=== PATIENT | male | born 1960 | race Caucasian/White ===

== ENCOUNTER 2017-10-15 08:21 | Emergency (ER) | payer OTHER ==
[2017-10-15 08:26] VITALS: O2SAT 98; BMI 23.7
--- NOTE | 2017-10-15 08:37 | ED PDOC ---
Upper Extremity Pain/Injury Time Seen by Provider: 10/15/17 08:23 Chief Complaint (Nursing): Upper Extremity Problem/Injury Chief Complaint (Provider): right shoulder pain History Per: Patient History/Exam Limitations: no limitations Onset/Duration Of Symptoms: Days (last ) Current Symptoms Are (Timing): Still Present Additional Complaint(s): Norberto Loera is a 56 year old male, with no significant past medical history, who presents to the emergency department complaining of right shoulder pain onset since last . Patient states he injured his right shoulder while lifting heavy door at work and has had pain since then. He denies any weakness or paresthesias. No further medical complaints. PMD: None provided. Past Medical History Reviewed: Historical Data, Nursing Documentation, Vital Signs Vital Signs: Last Vital Signs Temp 97 F L 10/15/17 08:25 Pulse 97 H 10/15/17 08:25 Resp 24 10/15/17 08:25 BP 157/79 H 10/15/17 08:25 Pulse Ox 98 10/15/17 08:25 - Medical History PMH: No Chronic Diseases - Surgical History Surgical History: No Surg Hx - Family History Family History: States: Unknown Family Hx - Home Medications Home Medications: Ambulatory Orders Medication Instructions Recorded Naproxen [Naprosyn] 500 mg PO Q12H #20 tab 10/15/17 - Allergies Allergies/Adverse Reactions: Allergies Allergy/AdvReac Type Severity Reaction Status Date / Time No Known Allergies Allergy Verified 10/15/17 08:33 Review of Systems ROS Statement: Except As Marked, All Systems Reviewed And Found Negative Musculoskeletal: Positive for: Shoulder Pain (right) Neurological: Negative for: Weakness, Numbness (paresthesias) Physical Exam - Reviewed Nursing Documentation Reviewed: Yes Vital Signs Reviewed: Yes - Physical Exam Appears: Positive for: No Acute Distress Head Exam: Positive for: ATRAUMATIC, NORMAL INSPECTION, NORMOCEPHALIC Skin: Positive for: Normal Color, Warm, Dry Eye Exam: Positive for: Normal appearance Neck: Positive for: Painless ROM Extremity: Positive for: Tenderness (right shoulder anterolaterally ). Negative for: Normal ROM (anteriorly limited by pain), Deformity (right shoulder ), Swelling (right shoulder), Other (crepitus) Neurologic/Psych: Positive for: Alert, Oriented. Negative for: Motor/Sensory Deficits (no focal deficits) - ECG O2 Sat by Pulse Oximetry: 98 (RA) Pulse Ox Interpretation: Normal Medical Decision Making Medical Decision Making: Time: 08:23 Initial Plan: --Shoulder right [RAD] --Reevaluation ----- Scribe Attestation: Documented by Shade Lamas, acting as a scribe for Edward Ivan MD. Provider Scribe Attestation: All medical record entries made by the Scribe were at my direction and personally dictated by me. I have reviewed the chart and agree that the record accurately reflects my personal performance of the history, physical exam, medical decision making, and the department course for this patient. I have also personally directed, reviewed, and agree with the discharge instructions and disposition. Disposition - Clinical Impression Clinical Impression: Shoulder sprain - Patient ED Disposition Is Patient to be Admitted: No Counseled Patient/Family Regarding: Studies Performed, Diagnosis, Need For Followup, Rx Given - Disposition Disposition: Routine/Home Disposition Time: 10:31 Condition: FAIR Prescriptions: Naproxen [Naprosyn] 500 mg PO Q12H #20 tab Instructions: Shoulder Sprain, Calcific Tendonitis of the Shoulder (DC) Forms: [employer] (Ind[place]ian), [facility] ED School/Work Excuse
--- NOTE | 2017-10-15 10:15 | RAD ---
Date of service: 10/15/2017 PROCEDURE: Radiographs of the Right Shoulder HISTORY: Injury COMPARISON: No prior. FINDINGS: BONES: No acute fracture or destructive bony lesion identified. JOINTS: Normal. Glenohumeral joint is preserved. Advanced degenerative changes are seen the acromioclavicular joint including superior and inferior osteophytes. SOFT TISSUES: Heterotopic calcification is seen at the region of the rotator cuff laterally which may reflect calcific tendinopathy. OTHER FINDINGS: None. IMPRESSION: Calcific tendinopathy suggested. No acute fracture, subluxation or dislocation. 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
[2017-10-15 14:09] VITALS: BP 142/76; PULSE 98; RESP 18; TEMP 98
== END 2017-10-15 10:45 | disposition home or self-care (01) ==
LOC: H.ER 08:21
DX: S43.401A Unspecified sprain of right shoulder joint, initial encounter (principal); X50.0XXA Overexertion from strenuous movement or load, initial encounter; X50.9XXA Other and unspecified overexertion or strenuous movements or postures, initial encounter; Y99.0 Civilian activity done for income or pay